=== PATIENT | male | born 2000 | race Caucasian/White ===

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

== ENCOUNTER 2022-09-09 11:00 | Outpatient (RCR) | payer BC | END 2022-09-13 | disposition home or self-care (01) | LOC: WSST | DX: R41.9 Unspecified symptoms and signs involving cognitive functions and awareness (principal) ==

== ENCOUNTER → 2022-10-14 | Outpatient (RCR) | payer BC | END | disposition home or self-care (01) | LOC: WSST | DX: R41.9 Unspecified symptoms and signs involving cognitive functions and awareness (principal) ==

== ENCOUNTER 2022-11-11 12:00 | Outpatient (RCR) | payer BC | END 2022-11-13 | disposition home or self-care (01) | LOC: WSST | DX: R48.9 Unspecified symbolic dysfunctions (principal); R41.3 Other amnesia ==

== ENCOUNTER → 2022-12-14 | Outpatient (RCR) | payer BC | END | disposition home or self-care (01) | LOC: WSST | DX: R48.9 Unspecified symbolic dysfunctions (principal); R41.3 Other amnesia ==

== ENCOUNTER 2023-04-14 10:00 | Outpatient (RCR) | payer BC | END 2023-04-15 | disposition home or self-care (01) | LOC: MKS.ESL.PT | DX: R41.9 Unspecified symptoms and signs involving cognitive functions and awareness (principal) ==

== ENCOUNTER 2023-05-12 11:15 | Outpatient (RCR) | payer BC | END 2023-05-16 | disposition still patient (30) | LOC: WSST | DX: F80.1 Expressive language disorder (principal); R49.9 Unspecified voice and resonance disorder; R41.9 Unspecified symptoms and signs involving cognitive functions and awareness ==

== ENCOUNTER 2023-06-30 11:15 | Outpatient (RCR) | payer BC | END 2023-07-16 | disposition home or self-care (01) | LOC: WSST | DX: R41.9 Unspecified symptoms and signs involving cognitive functions and awareness (principal) ==

== ENCOUNTER 2023-08-11 11:15 | Outpatient (RCR) | payer BC | END 2023-08-16 | disposition home or self-care (01) | LOC: WSST | DX: F80.1 Expressive language disorder (principal); R49.9 Unspecified voice and resonance disorder ==

== ENCOUNTER 2023-09-08 11:15 | Outpatient (RCR) | payer BC | END 2023-09-14 | disposition home or self-care (01) | LOC: WSST | DX: F80.1 Expressive language disorder (principal); R49.9 Unspecified voice and resonance disorder; R41.9 Unspecified symptoms and signs involving cognitive functions and awareness ==

== ENCOUNTER 2023-11-10 11:15 | Outpatient (RCR) | payer BC | END 2023-11-14 | disposition home or self-care (01) | LOC: WSST | DX: F80.1 Expressive language disorder (principal); R49.9 Unspecified voice and resonance disorder ==

== ENCOUNTER 2023-11-24 11:15 | Outpatient (RCR) | payer BC | END 2023-12-15 | disposition home or self-care (01) | LOC: WSST | DX: F80.1 Expressive language disorder (principal); R49.9 Unspecified voice and resonance disorder ==

== ENCOUNTER → 2024-06-18 | Outpatient (CLI) | payer BC | LOC: COL.RAD 07:07 | DX: M54.2 Cervicalgia (principal) ==